=== PATIENT | male | born 1965 | race Caucasian/White ===

== ENCOUNTER 2021-04-04 23:30 | Emergency (ER) | payer MEDICARE, OTHER, SELFPAY ==
[2021-04-05 00:46] VITALS: BP 137/83; PULSE 62; RESP 18; TEMP 36.1; O2SAT 99; BMI 25.8
--- NOTE | 2021-04-05 03:01 | PC.NURSE ---
Pt assisted into POC, provided with icepacks. Pt offered Tylenol for pain but refused, states he is unable to take Tylenol. Awaiting primary MD kitchen.
[2021-04-05 03:04] VITALS: BP 121/73; PULSE 48; RESP 16; O2SAT 98
--- NOTE | 2021-04-05 03:07 | PC.NURSE ---
HR noted to be bradycardic @ 48 bpm. Pt reports a history of an IN in May, denies taking any medications to slow his HR. Pt asymptomatic, denies dizziness/weakness/SOB. Continue to monitor.
[2021-04-05 04:28] VITALS: BP 124/51; PULSE 50; RESP 16
--- NOTE | 2021-04-05 04:28 | PC.NURSE ---
UA obtained and sent.
[2021-04-05 04:35] LABS: Glucose Urine UA NEG (NEG); Leukocyte Esterase Urine NEG (NEG); Nitrite Urine NEG (NEG); Specific Gravity - Urine >= 1.030 (1.005-1.025); UACC Culture Trigger NO; Urine Blood TRACE (NEG); Urine Ketones NEG (NEG); Urine Protein 2+ MG/DL (NEG-TRACE)
[2021-04-05 05:03] LABS: Appearance Urine CLEAR; Color Urine DARK YELLOW
[2021-04-05 05:05] LABS: Mucus Urine 3+ /LPF; RBC Urine 0-2 /HPF (0); Squamous Epithelial Cell Urine TRACE /LPF; WBC Urine 0 /HPF (0-4)
--- NOTE | 2021-04-05 05:19 | PC.NURSE ---
at bedside for primary eval.
--- NOTE | 2021-04-05 05:55 | ED_ITS ---
HPI - Back Pain/Injury General Chief Complaint: Back Pain/Injury Stated Complaint: Back pain Time Seen by Provider: 04/05/21 03:56 Source: patient Mode of arrival: ambulatory History of Present Illness HPI Narrative: 55-year-old male states he has had right back pain radiating down the right leg without numbness, tingling, weakness this been ongoing now for several days and has not been associated with any fever, chills, urinary pain/burning/frequency or saddle anesthesia or difficulty with bowel or bladder control. Related Data Allergies Allergy/AdvReac Type Severity Reaction Status Date / Time ibuprofen [IBUPROFEN] Allergy Intermediate GI Unverified 05/10/20 16:06 UPSET/BLEED naproxen [NAPROXEN] Allergy Intermediate GI Unverified 05/10/20 16:06 UPSET/BLEED Review of Systems Review of Systems: Pertinent positives and negatives as stated in HPI 10 point review of systems is otherwise negative. PMFSH Past Medical History Source: nursing notes reviewed Social History Social History Advance Directives: No Advance Directives Information Provided: No Physical Exam Vital Signs: Vital Signs: Last Vital Signs Temp 97.0 F 04/05/21 00:46 Pulse 53 04/05/21 06:10 Resp 16 04/05/21 06:10 BP 115/69 04/05/21 06:10 Pulse Ox 95 04/05/21 06:10 Body Mass Index 25.8 VITAL SIGNS: Reviewed. GENERAL: Well developed, well nourished, in no acute distress. HEAD: Normocephalic/atraumatic EYES: PERRLA, EOMI LUNGS: Normal breath sounds. No adventitious sounds or accessory muscle use. SpO2<95> CARDIOVASCULAR: Regular rate and rhythm without noted murmurs, no JVD or lower extremity edema. ABDOMEN: Soft, non-tender, non-distended with bowel sound, no CVA tenderness BACK: Right-sided paraspinal lumbar pain with tenderness on palpation over right gluteus MUSCULOSKELETAL: No tenderness, deformities, or effusions noted on gross inspection. EXTREMITIES: No cyanosis, clubbing or edema. SKIN: Inspection of the skin reveals no rashes NEUROLOGIC: Alert and oriented x 4. Strength and sensation to light touch were grossly intact x 4. Course Course Course Narrative: 55-year-old male with history and clinical presentation consistent with back pain with associated sciatica no evidence to suggest cauda equina, renal colic, UTI. Patient was provided with combination analgesics and on re-evaluations states complete resolution of his discomfort. He was otherwise discharged home in stable condition. MDM - Back Pain/Injury Lab Data Labs: Lab Results 04/05/21 Range/Units 04:28 Urine Color DARK YELLOW Urine Appearance CLEAR Urine pH 6.0 (5.0-8.0) Ur Specific [place] >= 1.030 H (1.005-1.025) Urine Protein 2+ H (NEG-TRACE) MG/DL Urine Glucose (UA) NEG (NEG) MG/DL Urine Ketones NEG (NEG) MG/DL Urine Blood TRACE (NEG) Urine Nitrite NEG (NEG) Ur Leukocyte Esterase NEG (NEG) Urine RBC 0-2 (0) /HPF Urine WBC 0 (0-4) /HPF Ur Squamous Epith Cells TRACE /LPF Urine Bacteria NONE /LPF Urine Mucus 3+ /LPF Discharge Plan Discharge Clinical Impression: Sciatica, Back pain Patient Disposition: Home, Self-Care Instructions: Sciatica (ED), Lumbar Radiculopathy (ED), Lower Back Exercises (ED) Additional Instructions: 1. Tylenol 1000 mg, orally, every 6 hours as needed for pain control. Do not exceed 4000 mg within 24 hours. 2. Lidocaine patch, available [id number], apply to area of maximal tenderness as directed on the outside packaging. 3. Follow-up the primary care provider in the next 2-3 days for re-evaluation and further outpatient management. Return to the ER for acute worsening of symptoms. Referrals: Physician,Unknown [Primary Care Provider] - 2 days
[2021-04-05] MEDS: Ketorolac Tromethamine 15 MG/ML VIAL IM (06:09)
[2021-04-05] MEDS: Acetaminophen 325 MG TABLET 975 MG PO (06:09)
[2021-04-05 06:10] VITALS: BP 115/69; PULSE 53; RESP 16; O2SAT 95
[2021-04-05] MEDS: Lidocaine 4 % Patch ADH..PATCH 1 PATCH TRANSDERMA (06:10)
--- NOTE | 2021-04-05 06:16 | PC.NURSE ---
Medicated per MAR. VSS. Awaiting DC paperwork.
== END 2021-04-05 06:38 | disposition home or self-care (01) ==
PROVIDERS: Emergency Provider Student in an Organized Health Care Education/Training Program
DX: M54.41 Lumbago with sciatica, right side (principal)
CPT/HCPCS: 81001; 81003; 96372; 99284; J1885